=== PATIENT | female | born 1990 | race American Indian/Alaskan Native ===

== ENCOUNTER 2016-07-06 22:19 | Emergency (ER) | payer SELFPAY ==
[2016-07-07 00:13] LABS: Basophils % (Auto) 0.5 % (0.0-1.8); Hematocrit 37.3 % (30.3-42.9); Hemoglobin 12.5 gm/dl (10.1-14.3); Mean Corpuscular HGB Conc 34 % (30-34); Mean Corpuscular Hemoglobin 32 pg (28-32); Mean Corpuscular Volume 96 fl (79-97); Platelet Count 269 K/mm3 (140-440); Red Blood Count 3.88 M/mm3 (3.65-5.03); Red Cell Distribution Width 12.6 % (13.2-15.2)
[2016-07-07 00:19] LABS: Bilirubin,Urine NEG (Negative); Blood,Urine NEG (Negative); Ketones,Urine NEG (Negative); Leukocyte Esterase,Urine NEG (Negative); Mucus,Urine 3+ /HPF; Nitrite,Urine NEG (Negative); Protein,Urine <15 mg/dL mg/dL (Negative); Urobilinogen,Urine < 2.0 mg/dL (<2.0)
[2016-07-07 00:23] LABS: INR 0.99 (0.87-1.13); Partial Thromboplastin Time 26.5 Sec. (24.2-36.6)
[2016-07-07 00:27] LABS: Alanine Aminotransferase 8 units/L (7-56); Albumin 4.1 g/dL (3.9-5); Albumin/Globulin Ratio 1.2 %; Alkaline Phosphatase 51 units/L (35-129); Anion Gap 18 mmol/L; Bilirubin,Total 0.5 mg/dL (0.1-1.2); Blood Urea Nitrogen 11 mg/dL (7-17); Calcium 8.8 mg/dL (8.4-10.2); Carbon Dioxide 21 mmol/L (22-30); Chloride 105.3 mmol/L (98-107); Glucose 73 mg/dL (65-100); Lipase 20 units/L (13-60); Potassium 3.7 mmol/L (3.6-5.0); Sodium 141 mmol/L (137-145); Total Protein 7.6 g/dL (6.3-8.2)
[2016-07-07 08:26] VITALS: BP 137/92
[2016-07-07] MEDS ORDERED: MOTRIN PO ONE (08:53)
--- NOTE | 2016-07-07 08:53 | Emergency Department Report ---
ED Chest Pain HPI - General Chief Complaint: Pain General Stated Complaint: BACK AND CHEST PAIN Time Seen by Provider: 07/07/16 07:57 Source: patient Mode of arrival: Ambulatory Limitations: No Limitations - History of Present Illness Initial Comments: 25-year-old female past medical history none presents with complaint of one week of intermittent right-sided chest pain worse with movement. Denies any fevers chills no associated diaphoresis nausea or vomiting. No upper or lower extremity weakness or paresthesias. Patient states that she has not had any rash no direct trauma to chest. 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 Patient states that pain is worse when she presses area of ribs underneath her right breast and when she rotates her right shoulder internally and externally. Patient states she was taking Tylenol with minimal relief pain. Denies any family history in mother or father of heart attack. Denies any recent surgery no recent travel no personal history of PE or DVT denies being on any control. States that pain makes her slightly short of breath last for a few seconds at a time. Has felt this sensation intermittently when physically exerting herself and using her upper extremities a few times this week. Denies any associated productive cough or hemoptysis. MD Complaint: chest pain Onset/Timin -: week(s) Onset: during exertion Pain Location: right chest Pain Radiation: RUE Severity: moderate Severity scale (0 -10): 6 Quality: aching, sharp Consistency: intermittent Worsens With: movement Treatments Prior to Arrival: none Aspirin use within the Past 7 Days: (1) Yes - Related Data On Oral Contraceptives: No Previous Rx's Medication Instructions Recorded Last Taken Type Famotidine [Pepcid] 20 mg PO BID PRN #30 tablet 07/07/16 Unknown Rx Naproxen [Naprosyn TAB] 500 mg PO BID PRN #25 tablet 07/07/16 Unknown Rx Ondansetron [Zofran Odt] 4 mg PO Q8HR PRN #10 tab.rapdis 07/07/16 Unknown Rx Allergies Allergy/AdvReac Type Severity Reaction Status Date / Time No Known Allergies Allergy Unverified 07/06/16 22:52 JOSE C score - Jose C Score Age > 65: (0) No Aspirin use within the Past 7 Days: (0) No 3 or more CAD Risk Factors: (0) No 2 or more Angina events in past 24 hrs: (0) No Known CAD with more than 50% Stenosis: (0) No Elevated Cardiac Markers: (0) No ST Deviation Greater than 0.5mm: (0) No JOSE C Score: 0 ED Review of Systems ROS: Stated complaint: BACK AND CHEST PAIN Other details as noted in HPI Constitutional: denies: chills, fever Eyes: denies: eye pain, eye discharge, vision change ENT: denies: ear pain, throat pain Respiratory: denies: cough, shortness of breath, wheezing Cardiovascular: chest pain. denies: palpitations Endocrine: no symptoms reported Gastrointestinal: denies: abdominal pain, nausea, diarrhea Genitourinary: denies: urgency, dysuria, discharge Musculoskeletal: denies: back pain, joint swelling, arthralgia Skin: denies: rash, lesions Neurological: denies: headache, weakness, paresthesias Psychiatric: denies: anxiety, depression Hematological/Lymphatic: denies: easy bleeding, easy bruising ED Past Medical Hx - Past Medical History Previous Medical History?: No - Surgical History Past Surgical History?: No - Social History Smoking Status: Never Smoker Substance Use Type: None - Medications Home Medications: Home Medications Medication Instructions Recorded Confirmed Last Taken Type Famotidine [Pepcid] 20 mg PO BID PRN #30 tablet 07/07/16 Unknown Rx Naproxen [Naprosyn TAB] 500 mg PO BID PRN #25 tablet 07/07/16 Unknown Rx Ondansetron [Zofran Odt] 4 mg PO Q8HR PRN #10 tab.rapdis 07/07/16 Unknown Rx ED Physical Exam - General Limitations: No Limitations General appearance: alert, in no apparent distress - Head Head exam: Present: atraumatic, normocephalic - Eye Eye exam: Present: normal appearance, PERRL, EOMI - ENT ENT exam: Present: mucous membranes moist - Neck Neck exam: Present: normal inspection, full ROM - Respiratory Respiratory exam: Present: normal lung sounds bilaterally. Absent: respiratory distress - Cardiovascular Cardiovascular Exam: Present: regular rate, normal rhythm. Absent: systolic murmur, diastolic murmur, rubs, gallop - Expanded Cardiovascular Exam Expanded 1 - Reproducible chest pain in this region on palpation directly overlying intercostal region right side midaxillary line. No visible rash in surface. - GI/Abdominal GI/Abdominal exam: Present: soft, normal bowel sounds - Extremities Exam Extremities exam: Present: normal inspection - Back Exam Back exam: Present: normal inspection, full ROM - Neurological Exam Neurological exam: Present: alert, oriented X3, CN II-XII intact, normal gait - Expanded Neurological Exam Expanded Patient oriented to: Present: person, place, time Sensory exam: Upper Extremity Light Touch: Normal, Lower Extremity Light Touch: Normal Motor strength exam: RUE: 5, LUE: 5, RLE: 5, LLE: 5 DTR: bicep (R): 3+, bicep (L): 3+, tricep (R): 3+, tricep (L): 3+ Best Eye Response (Cosmo): (4) open spontaneously Best Motor Response (Cosmo): (6) obeys commands Best Verbal Response ([place]): (5) oriented [place] Total: 15 - Psychiatric Psychiatric exam: Present: normal affect, normal mood - Skin Skin exam: Present: warm, dry, intact, normal color. Absent: rash ED Course Vital Signs 07/06/16 07/07/16 22:26 08:25 Temperature 98.5 F Pulse Rate 84 72 Respiratory 18 20 Rate Blood Pressure 125/78 137/92 [Right] O2 Sat by Pulse 100 100 Oximetry ED Medical Decision Making - Lab Data Result diagrams: 07/06/16 23:27 07/06/16 23:27 - Medical Decision Making A/P: Musculoskeletal chest pain/ costochondritis 1-chest pain is reproducible on physical exam likely due to stress related to work and overuse of upper extremity/chest related to work, patient works in a [employer], lifts boxes and groceries all day long. 2- Risk Stratification for chest pain: HEART Score: 0 points Low Score (0-3 points) Risk of MACE of 0.9-1.7%; JOSE C Score 0 points 5% risk at 14 days of: all -cause mortality, new or recurrent [place], or severe recurrent ischemia requiring urgent revascularization.; PERC Rule 0 criteria No need for further workup, as < 2% chance of PE. If no criteria are positive and clinicians pre-test probability is <15%, PERC Rule criteria are satisfied.; Well Score for PE; 0.0 points Low risk group: 1.3% chance of PE in an ED population. Another study assigned scores 4 as PE Unlikely and had a 3% incidence of PE. Pt has no hx of dvt/pe, not on BC, no recent srugeries, etc. Nop family hx of [place] in mother or father as per pt. as no personal risk factors for CAD herself. 3-serial EKGs within normal limits 4-case discussed with before discharge, I will give patient f./u with PMD and Cardiology for outpt f/u and testing 5- Naproxen PRn for pain Critical care attestation.: If time is entered above; I have spent that time in minutes in the direct care of this critically ill patient, excluding procedure time. ED Disposition Clinical Impression: Musculoskeletal chest pain Disposition: DISCHARGED TO HOME OR SELFCARE Is pt being admited?: No Does the pt Need Aspirin: No Condition: Stable Instructions: Chest Pain (ED), Costochondritis (ED) Additional Instructions: I advised patient to call for follow-up appointment with cardiology within the next 3-5 days as per our discussion. Patient agreed to do so. Prescriptions: Famotidine [Pepcid] 20 mg PO BID PRN #30 tablet PRN Reason: Indigestion Naproxen [Naprosyn TAB] 500 mg PO BID PRN #25 tablet PRN Reason: Pain Ondansetron [Zofran Odt] 4 mg PO Q8HR PRN #10 tab.rapdis PRN Reason: Nausea Referrals: STEPHANIE GHOSH MD [Staff Physician] - 3-5 Days AVERY LEÓN MD [Staff Physician] - 3-5 Days Forms: Work/School Release Form(ED) Time of Disposition: 09:09
--- NOTE | 2016-07-07 09:12 | XRay Report ---
Chest 2 views: History: Chest pain. Findings: Normal cardiomediastinal silhouette. Trachea is midline. No consolidation, pneumothorax or pleural effusion. Impression: No acute cardiopulmonary findings.
== END 2016-07-07 10:10 | disposition home or self-care (01) ==
LOC: ED 22:19
DX: R07.89 Other chest pain (principal)
CPT/HCPCS: 36415; 71020; 80053; 81001; 83690; 84484; 84703; 85025; 85610; 85730; 93005; 93010

== ENCOUNTER 2017-09-17 09:47 | Inpatient (IN) | payer BC, MEDICAID ==
[2017-09-17] MEDS: PHENERGAN PR SCH (12:30)
--- NOTE | 2017-09-17 12:58 | History and Physical Report ---
History of Present Illness Date of examination: 09/17/17 Date of admission: 09/17/17 10:40 Chief complaint: hyperemesis gravidarum History of present illness: This is a 26 yo at 10 weeks here for hyperemesisi and graviardum. She is not able to tolerate po. She was seen in clinic last week and given antiemetics but unable to continue. Patient reports back pain. She has lost 5 pounds. Past History Past Medical History: no pertinent history Past Surgical History: no surgical history Family/Genetic History: none Social history: no significant social history, single. denies: smoking, alcohol abuse, prescription drug abuse Medications and Allergies Allergies Allergy/AdvReac Type Severity Reaction Status Date / Time No Known Allergies Allergy Unverified 07/06/16 22:52 Home Medications Medication Instructions Recorded Confirmed Last Taken Type Famotidine [Pepcid] 20 mg PO BID PRN #30 tablet 07/07/16 Unknown Rx Naproxen [Naprosyn TAB] 500 mg PO BID PRN #25 tablet 07/07/16 Unknown Rx Ondansetron [Zofran Odt] 4 mg PO Q8HR PRN #10 tab.rapdis 07/07/16 Unknown Rx Active Meds: Active Medications Dextrose/Lactated Ringer's (D5lr) 1,000 mls @ 500 mls/hr IV DIRECT ANIKA Stop: 09/18/17 14:59 Dextrose/Lactated Ringer's (D5lr) 1,000 mls @ 150 mls/hr IV DIRECT ANIKA Metoclopramide HCl (Reglan) 10 mg IV Q6H ANIKA Multivitamins/Iron/Calcium ( Vitamin) 1 each PO QDAY ANIKA Ondansetron HCl (Zofran) 4 mg IV Q6H PRN PRN Reason: N/V unrelieved by Reglan Promethazine HCl (Phenergan) 25 mg MT Q6H ANIKA Scopolamine (Transderm-Scop) 1 each TD Q3D ANIKA Review of Systems All systems: negative Gastrointestinal: abdominal pain, nausea, vomiting - Physical Exam Breasts: Positive: normal Cardiovascular: Regular rate, Normal S1 Lungs: Positive: Clear to auscultation, Normal air movement Abdomen: Positive: normal appearance, soft, normal bowel sounds. Negative: distention, tenderness, guarding Genitourinary (Female): Positive: normal external genitalia, normal perenium Vulva: both: normal Vagina: Positive: normal moisture Anus/Rectum: Positive: normal perianal skin Extremities: Positive: normal Deep Tendon Reflex Grade: Normal +2 Results All other labs normal. Assessment and Plan A/P IUP 10 weeks US for abdominal pain antiemetics IV ( zofran, phenergan, scopolamine, reglan) IVF nutrition consult NPO
[2017-09-17] MEDS: TRANSDERM-SCOP TD SCH (16:01)
[2017-09-17] MEDS: REGLAN IV SCH ×2 (16:02→22:29)
[2017-09-17] MEDS: ZOFRAN IV PRN (16:02)
[2017-09-17] MEDS: D5LR 1,000 ML IV SCH ×3 (16:03→21:03)
[2017-09-17 17:19] LABS: Bilirubin,Urine NEG (Negative); Blood,Urine NEG (Negative); Color,Urine Yellow (Yellow); Mucus,Urine FEW /HPF; Protein,Urine <15 mg/dL mg/dL (Negative); Urobilinogen,Urine < 2.0 mg/dL (<2.0)
--- NOTE | 2017-09-17 18:33 | Ultrasound Report ---
FINAL REPORT PROCEDURE: US OB < = 14 WEEKS FETUS TECHNIQUE: Real-time transabdominal sonography of the uterus, placenta, amniotic fluid, adnexa, and fetus was performed with image documentation. Measurements were obtained to determine age/size. M-mode Doppler was used to document heartbeat. CPT 12358 HISTORY: abdominal pain and hyperemesis COMPARISON: No prior studies are available for comparison. FINDINGS: There is a single living intrauterine gestation visualized with a heart rate of 160 beats per minute. Shape of the gestational sac appears normal. No evidence of subchorionic hemorrhage. [place]-rump length measurement 3.9 centimeter corresponding to an age of 10 weeks and 6 days. Fetus currently too small to assess anatomy. No gross abnormality is visualized. Right and left ovaries are normal in appearance and size. No abnormal adnexal masses are seen. No free fluid is seen in the cul-de-sac.. IMPRESSION: Single living intrauterine gestation visualized. By crown-rump length measurement estimated age is 10 weeks 6 days. This places the EDC at 04/09/2018 +/-1 week. Fetus currently too small to assess anatomy. No gross abnormality is seen. Consider follow-up anatomic screen at 18-20 weeks. Ovaries are visualized and are unremarkable.
[2017-09-17 19:14] LABS: Basophils % (Auto) 0.3 % (0.0-1.8); Eosinophils % (Auto) 0.4 % (0.0-4.3); Hematocrit 34.5 % (30.3-42.9); Hemoglobin 11.9 gm/dl (10.1-14.3); Lymphocytes # (Auto) 1.5 K/mm3 (1.2-5.4); Lymphocytes % (Auto) 22.3 % (13.4-35.0); Mean Corpuscular HGB Conc 35 % (30-34); Mean Corpuscular Hemoglobin 32 pg (28-32); Mean Corpuscular Volume 93 fl (79-97); Monocytes # (Auto) 0.4 K/mm3 (0.0-0.8); Monocytes % (Auto) 6.1 % (0.0-7.3); Platelet Count 291 K/mm3 (140-440); Red Blood Count 3.72 M/mm3 (3.65-5.03); Red Cell Distribution Width 12.3 % (13.2-15.2)
[2017-09-17 19:38] LABS: Lipase 17 units/L (13-60)
[2017-09-17 19:40] LABS: Alanine Aminotransferase 46 units/L (7-56); Albumin 3.6 g/dL (3.9-5); BUN/Creatinine Ratio 10; Blood Urea Nitrogen 4 mg/dL (7-17); Calcium 9.1 mg/dL (8.4-10.2); Hemolysis Index 0
[2017-09-17 19:49] LABS: Hepatitis A Antibody IgM Non-Reactive (NonReactive); Hepatitis B Core IgM Non-Reactive (NonReactive); Hepatitis B Surface Antigen Non-Reactive (Negative); Hepatitis C Virus Antibody Non-Reactive (NonReactive)
[2017-09-18] MEDS: KCL 10MEQ/100ML 10 MEQ/100 ML BAG IV SCH ×2 (00:04→01:29)
[2017-09-18] MEDS: PHENERGAN PR SCH ×3 (01:00→19:00)
[2017-09-18] MEDS: REGLAN IV SCH (04:35)
[2017-09-18] MEDS: D5LR 1,000 ML IV SCH ×3 (04:37→22:54)
--- NOTE | 2017-09-18 08:15 | Progress Note ---
Assessment and Plan A: IUP at 10 wks Hyperemesis P: Advance diet at tolerated. Transition to PO antiemetics Subjective - Subjective Date of service: 09/18/17 Principal diagnosis: Hyperemesis, IUP at 10 wks Interval history: Pt reports improved nausea overnight, and no emesis. She wants to eat food. She has tolerated clear liquids. Patient reports: no new complaints Objective - Vital Signs Vital Signs: Vital Signs - 12hr 09/18/17 09/18/17 00:00 04:25 Temperature 98.2 F 98.6 F Pulse Rate 72 67 Respiratory 20 20 Rate Blood Pressure 137/75 98/52 [Left] - Exam Breasts: deferred Cardiovascular: Regular rate Lungs: Clear to auscultation Abdomen: Present: soft Extremities: normal - Labs Labs: Abnormal Labs 09/17/17 09/17/17 09/17/17 16:45 19:02 19:02 MCHC 35 H RDW 12.3 L Seg Neutrophils % 70.9 H Sodium 135 L Potassium 3.4 L BUN 4 L Creatinine 0.4 L Glucose 141 H Albumin 3.6 L Urine pH 8.0 H Laboratory Results - last 24 hr 09/17/17 09/17/17 09/17/17 16:45 16:45 19:02 WBC 6.7 RBC 3.72 Hgb 11.9 Hct 34.5 MCV 93 MCH 32 MCHC 35 H RDW 12.3 L Plt Count 291 Lymph % (Auto) 22.3 [place] % (Auto) 6.1 Eos % (Auto) 0.4 Baso % (Auto) 0.3 Lymph # 1.5 [place] # 0.4 Eos # 0.0 Baso # 0.0 Seg Neutrophils % 70.9 H Seg Neutrophils # 4.7 Sodium Potassium Chloride Carbon Dioxide Anion Gap BUN Creatinine Estimated GFR BUN/Creatinine Ratio Glucose Calcium Total Bilirubin AST ALT Alkaline Phosphatase Total Protein Albumin Albumin/Globulin Ratio Amylase Lipase TSH Urine Color Yellow Urine Turbidity Clear Urine pH 8.0 H Ur Specific [place] 1.012 Urine Protein <15 mg/dl Urine Glucose (UA) Neg Urine Ketones Neg Neg Urine Blood Neg Urine Nitrite Neg Urine Bilirubin Neg Urine Urobilinogen < 2.0 Ur Leukocyte Esterase Neg Urine WBC (Auto) 2.0 Urine RBC (Auto) 1.0 U Epithel Cells (Auto) 1.0 Urine Mucus Few Hepatitis A IgM Ab Hep Bs Antigen Hep B Core IgM Ab Hepatitis C Antibody 09/17/17 09/17/17 09/17/17 19:02 19:02 19:02 WBC RBC Hgb Hct MCV MCH MCHC RDW Plt Count Lymph % (Auto) [place] % (Auto) Eos % (Auto) Baso % (Auto) Lymph # [place] # Eos # Baso # Seg Neutrophils % Seg Neutrophils # Sodium Potassium Chloride Carbon Dioxide Anion Gap BUN Creatinine Estimated GFR BUN/Creatinine Ratio Glucose Calcium Total Bilirubin AST ALT Alkaline Phosphatase Total Protein Albumin Albumin/Globulin Ratio Amylase 126 Lipase 17 TSH 1.440 Urine Color Urine Turbidity Urine pH Ur Specific [place] Urine Protein Urine Glucose (UA) Urine Ketones Urine Blood Urine Nitrite Urine Bilirubin Urine Urobilinogen Ur Leukocyte Esterase Urine WBC (Auto) Urine RBC (Auto) U Epithel Cells (Auto) Urine Mucus Hepatitis A IgM Ab Non-reactive Hep Bs Antigen Non-reactive Hep B Core IgM Ab Non-reactive Hepatitis C Antibody Non-reactive 09/17/17 09/18/17 19:02 07:04 WBC RBC Hgb Hct MCV MCH MCHC RDW Plt Count Lymph % (Auto) [place] % (Auto) Eos % (Auto) Baso % (Auto) Lymph # [place] # Eos # Baso # Seg Neutrophils % Seg Neutrophils # Sodium 135 L Potassium 3.4 L 3.9 Chloride 99.2 Carbon Dioxide 25 Anion Gap 14 BUN 4 L Creatinine 0.4 L Estimated GFR > 60 BUN/Creatinine Ratio 10 Glucose 141 H Calcium 9.1 Total Bilirubin 0.40 AST 30 ALT 46 Alkaline Phosphatase 44 Total Protein 6.9 Albumin 3.6 L Albumin/Globulin Ratio 1.1 Amylase Lipase TSH Urine Color Urine Turbidity Urine pH Ur Specific [place] Urine Protein Urine Glucose (UA) Urine Ketones Urine Blood Urine Nitrite Urine Bilirubin Urine Urobilinogen Ur Leukocyte Esterase Urine WBC (Auto) Urine RBC (Auto) U Epithel Cells (Auto) Urine Mucus Hepatitis A IgM Ab Hep Bs Antigen Hep B Core IgM Ab Hepatitis C Antibody
[2017-09-18 10:21] LABS: BUN/Creatinine Ratio 5; Blood Urea Nitrogen 2 mg/dL (7-17); Hemolysis Index 3
[2017-09-18] MEDS: REGLAN PO PRN ×3 (10:21→22:52)
[2017-09-18] MEDS: PRENATAL VITAMIN PO SCH (10:22)
[2017-09-19] MEDS: ZOFRAN IV PRN (02:30)
[2017-09-19] MEDS: PHENERGAN PR SCH ×4 (06:44→19:00)
--- NOTE | 2017-09-19 08:58 | Progress Note ---
Assessment and Plan A: 10 week hyperemesis, improved P: Progress diet Po antiemetics Subjective - Subjective Date of service: 09/19/17 Principal diagnosis: Hyperemesis, IUP at 10 wks Patient reports: other (tolerating Clears without N/V), no new complaints Objective - Vital Signs Vital Signs: Vital Signs - 12hr 09/18/17 09/19/17 09/19/17 22:00 00:00 04:00 Temperature 98.7 F 98.0 F Pulse Rate 79 65 Respiratory 20 20 Rate Respiratory 18 Rate [Abdomen] Blood Pressure 94/53 91/50 [Left] - Exam Breasts: deferred Abdomen: Present: normal appearance, soft Uterus: Present: normal, bogginess - Labs Labs: Abnormal Labs 09/17/17 09/17/17 09/17/17 16:45 19:02 19:02 MCHC 35 H RDW 12.3 L Seg Neutrophils % 70.9 H Sodium 135 L Potassium 3.4 L BUN 4 L Creatinine 0.4 L Glucose 141 H Albumin 3.6 L Urine pH 8.0 H 09/18/17 09:34 MCHC RDW Seg Neutrophils % Sodium 134 L Potassium BUN 2 L Creatinine 0.4 L Glucose Albumin Urine pH Laboratory Results - last 24 hr 09/18/17 09:34 Sodium 134 L Potassium 3.7 Chloride 99.0 Carbon Dioxide 23 Anion Gap 16 BUN 2 L Creatinine 0.4 L Estimated GFR > 60 BUN/Creatinine Ratio 5 Glucose 91 Calcium 9.0
[2017-09-19] MEDS: PRENATAL VITAMIN PO SCH (09:24)
[2017-09-19] MEDS: ZOFRAN ODT PO PRN (19:26)
[2017-09-20] MEDS: REGLAN PO PRN (02:27)
[2017-09-20] MEDS: ZOFRAN ODT PO PRN (08:01)
[2017-09-20] MEDS: PHENERGAN PR SCH (08:10)
--- NOTE | 2017-09-20 08:22 | Progress Note ---
Assessment and Plan A: IUP at 10 wks Hyperemesis tolerating soft diet on PO medication P: Discharge today on PO medication with follow up with Dr Spears next week. Subjective - Subjective Date of service: 09/20/17 Principal diagnosis: Hyperemesis, IUP at 10 wks Interval history: Pt doing well. Tolerated soft diet overnight. She is asking to go home today. Patient reports: other (tolerating soft diet without emesis ), no new complaints Objective - Vital Signs Vital Signs: Vital Signs - 12hr 09/19/17 09/20/17 21:26 00:56 Temperature 98.7 F 98.6 F Pulse Rate 69 70 Respiratory 20 20 Rate Blood Pressure 99/59 102/65 O2 Sat by Pulse 98 98 Oximetry - Exam Breasts: deferred Cardiovascular: Regular rate Lungs: Clear to auscultation Abdomen: Present: soft. Absent: tenderness Extremities: normal - Labs Labs: Abnormal Labs 09/17/17 09/17/17 09/17/17 16:45 19:02 19:02 MCHC 35 H RDW 12.3 L Seg Neutrophils % 70.9 H Sodium 135 L Potassium 3.4 L BUN 4 L Creatinine 0.4 L Glucose 141 H Albumin 3.6 L Urine pH 8.0 H 09/18/17 09:34 MCHC RDW Seg Neutrophils % Sodium 134 L Potassium BUN 2 L Creatinine 0.4 L Glucose Albumin Urine pH
--- NOTE | 2017-09-20 08:23 | Discharge Summary ---
Providers - Providers Date of Admission: 09/17/17 10:40 Date of discharge: 09/20/17 Attending physician: CORINNE SPEARS MD 09/17/17 12:47 Consult to Dietitian/Nutrition [CONS] Routine Physician Instructions: Reason For Exam: Hyperemesisi gravidarum Reason for Consult: hyper grav Reason for Consult: Poor oral intake Primary care physician: CORINNE SPEARS MD Hospitalization Reason for admission: other (hyperemesis) Hospital course: Patient was admitted for observation and IV antiemetics secondary to hyperemesis at 10 weeks. During hospitalization she was weaned to oral antibiotics and was able to tolerate a soft diet without emesis. She was discharged on hospital day number 3 and will follow up in the office next week with Dr. Spears. Condition at discharge: Stable Disposition: [id number] TO HOME OR SELFCARE - Discharge Diagnoses (1) Hyperemesis affecting , antepartum Status: Acute (2) Status: Acute Qualifiers: Weeks of gestation: 10 weeks Qualified Code(s): Z3A.10 - 10 weeks gestation of Plan - Discharge Medications Prescriptions: Ondansetron [Zofran Odt] 4 mg PO Q8H PRN #30 tab.rapdis PRN Reason: Nausea - Provider Discharge Summary Activity: routine Diet: routine Instructions: routine Additional instructions: [] Smoking cessation referral if applicable(refer to patient education folder for contact #) [] Refer to [facility]'s [facility] Booklet Call your doctor immediately for: * Fever > 100.5 * Heavy vaginal bleeding ( >1 pad per hour) * Severe persistent headache * Shortness of breath * Reddened, hot, painful area to leg or breast * Drainage or odor from incision. * Keep incision clean and dry at all times and follow doctor's instructions regarding bathing/showering - Follow up plan Follow up: CORINNE SPEARS MD [Primary Care Provider] - 7 Days
[2017-09-20] MEDS: PRENATAL VITAMIN PO SCH (09:53)
[2017-09-20] MEDS: TRANSDERM-SCOP TD SCH (11:28)
[2017-09-20 13:14] VITALS: BP 98/79
[2017-09-20] MEDS ORDERED: TRANSDERM-SCOP TD SCH (16:00)
== END 2017-09-20 14:30 | disposition home or self-care (01) | DRG 781 ==
LOC: OB 10:40
PROVIDERS: ADMIT Obstetrics & Gynecology; ATTEND Obstetrics & Gynecology
DX: O21.0 Mild hyperemesis gravidarum (principal); Z3A.10 10 weeks gestation of pregnancy
CPT/HCPCS: 36415; 76801; 80048; 80053; 80074; 81001; 82010; 82150; 83690; 84132; 84443; 85025; J2405; J2765; J3480; J7121; Q0162

== ENCOUNTER 2018-01-09 01:12 | Outpatient (CLI) | payer BC, MEDICAID ==
[2018-01-09 01:33] VITALS: BP 119/72
[2018-01-09] MEDS ORDERED: LACTATED RINGERS 500 ML IV ONE (01:50)
[2018-01-09] MEDS ORDERED: LACTATED RINGERS 1,000 ML IV ONE (01:51)
[2018-01-09 03:03] LABS: Bacteria,Urine 1+ /HPF (Negative); Bilirubin,Urine NEG (Negative); Blood,Urine NEG (Negative); Color,Urine Straw (Yellow); Mucus,Urine FEW /HPF; Protein,Urine <15 mg/dL mg/dL (Negative); Urobilinogen,Urine < 2.0 mg/dL (<2.0)
== END 2018-01-09 03:30 | disposition home or self-care (01) ==
LOC: TRG 01:12
PROVIDERS: ATTEND Obstetrics & Gynecology
DX: O26.892 Other specified pregnancy related conditions, second trimester (principal); R10.10 Upper abdominal pain, unspecified; M54.9 Dorsalgia, unspecified; Z3A.26 26 weeks gestation of pregnancy
CPT/HCPCS: 81001

== ENCOUNTER 2018-04-05 07:50 | Outpatient (CLI) | payer BC, MEDICAID ==
[2018-04-05 08:02] VITALS: BP 122/70
[2018-04-05] MEDS ORDERED: LACTATED RINGERS 1,000 ML IV ONE (08:26)
[2018-04-05] MEDS ORDERED: LACTATED RINGERS 1,000 ML ONE (08:27)
[2018-04-05] MEDS ORDERED: MORPHINE IV ONE (09:12)
[2018-04-05] MEDS ORDERED: PHENERGAN PO ONE (09:13)
== END 2018-04-05 12:20 | disposition home or self-care (01) ==
LOC: TRG 07:50
PROVIDERS: ATTEND Obstetrics & Gynecology
DX: O47.1 False labor at or after 37 completed weeks of gestation (principal); Z3A.39 39 weeks gestation of pregnancy
CPT/HCPCS: 59025; 96360; J2270; J7120; Q0169

== ENCOUNTER 2018-04-05 14:30 | Inpatient (IN) | payer BC, MEDICAID ==
[2018-04-05] MEDS ORDERED: PHENERGAN PO PRN (14:51)
[2018-04-05] MEDS ORDERED: MORPHINE IV ONE (15:04)
[2018-04-05] MEDS: LACTATED RINGERS 1,000 ML IV SCH ×2 (15:10→18:10)
[2018-04-05] MEDS ORDERED: MORPHINE ONE (15:13)
[2018-04-05 15:28] LABS: Hematocrit 37.5 % (30.3-42.9); Hemoglobin 12.7 gm/dl (10.1-14.3); Mean Corpuscular HGB Conc 34 % (30-34); Mean Corpuscular Volume 95 fl (79-97); Platelet Count 240 K/mm3 (140-440); Red Blood Count 3.94 M/mm3 (3.65-5.03); Red Cell Distribution Width 13.8 % (13.2-15.2)
[2018-04-05] MEDS ORDERED: NARCAN 2 MG/2 ML IV PRN (18:55)
[2018-04-05] MEDS ORDERED: BENADRYL IV PRN (18:55)
--- NOTE | 2018-04-05 18:57 | Anesthesia Day of Surgery ---
Anesthesia Day of Surgery - Day of Surgery Patient Examined: Yes Patient H&P Reviewed: Yes Patient is NPO: Yes Beta Blockers: No Cardiac Clearance: No Pulmonary Clearance: No Smhuel's Test: N/A
--- NOTE | 2018-04-05 18:57 | Anesthesia Consultation ---
Anesthesia Consult and Med Hx Date of service: 04/05/18 - Airway Anesthetic Teeth Evaluation: Good ROM Head & Neck: Adequate Mental/Hyoid Distance: Adequate Mallampati Class: Class II Intubation Access Assessment: Probably Good - Pulmonary Exam CTA: Yes - Cardiac Exam Cardiac Exam: No Murmur - Pre-Operative Health Status ASA Pre-Surgery Classification: ASA2 Proposed Anesthetic Plan: Epidural - Pulmonary Hx Asthma: No COPD: No Hx Pneumonia: No - Cardiovascular System Hx Hypertension: No - Central Nervous System Hx Seizures: No Hx Psychiatric Problems: No - Endocrine Hx Renal Disease: No Hx End Stage Renal Disease: No Hx Hypothyroidism: No Hx Hyperthyroidism: No - Hematic Hx Anemia: Yes Hx Sickle Cell Disease: No - Other Systems Hx Alcohol Use: No
[2018-04-05] MEDS ORDERED: fentaNYL-BUPIV 2 MCG/ML-0.125% 200 MCG/100 ML BAG EPIDURAL SCH (19:00)
[2018-04-05] MEDS ORDERED: PITOCin/NS 20 UNIT/1000ML DRIP 20 UNITS/1,000 ML BAG IV SCH ×2 (19:00→20:00)
[2018-04-05] MEDS ORDERED: STADOL IV PRN (19:28)
[2018-04-05] MEDS ORDERED: BRETHINE IVP PRN (19:28)
[2018-04-05] MEDS ORDERED: XYLOCAINE 2% INFILTRATI ONE (19:28)
[2018-04-05] MEDS ORDERED: BRETHINE SUB-Q PRN (19:28)
[2018-04-05] MEDS ORDERED: AMPICILLIN/NS 2 GM/100 ML 2 GM/100 ML BAG IV ONE ×2 (19:28→19:39)
[2018-04-05] MEDS ORDERED: MINERAL OIL PO PRN (19:28)
[2018-04-05] MEDS ORDERED: PITOCin/NS 30 UNIT/500ML 30 UNITS/500 ML BAG IV SCH (20:00)
[2018-04-05] MEDS ORDERED: LACTATED RINGERS 1,000 ML IV SCH (20:00)
[2018-04-05] MEDS ORDERED: AMPICILLIN/NS 1 GM/50 ML 1 GM/50 ML BAG IV SCH (23:29)
--- NOTE | 2018-04-06 02:02 | History and Physical Report ---
History of Present Illness Date of examination: 04/06/18 Date of admission: 04/05/18 17:30 Chief complaint: contractions History of present illness: 27y/o @ 38+6 weeks presents with regular uterine contractions. She denies leakage of fluid. Patient had been latent labor for the last 24 hours and eventually had cervical change to 5cm. GBS status is currently unknown. Past History Past Medical History: no pertinent history Past Surgical History: no surgical history Social history: single - Obstetrical History Expected Date of Delivery: 04/14/18 Actual Gestation: 38 Week(s) 6 Day(s) : 3 Para: 2 Hx # Term Pregnancies: 2 Number of Pregnancies: 0 Spontaneous Abortions: 0 Induced : 0 Number of Living Children: 2 Medications and Allergies Allergies Allergy/AdvReac Type Severity Reaction Status Date / Time No Known Allergies Allergy Verified 01/09/18 01:50 Home Medications Medication Instructions Recorded Confirmed Last Taken Type Vits96/Iron Fum/Folic 1 tab PO QDAY 04/05/18 04/05/18 04/03/18 History [ Tablet] Active Meds: Active Medications Butorphanol Tartrate (Stadol) 2 mg IV Q2H PRN PRN Reason: Pain , Severe (7-10) Diphenhydramine HCl (Benadryl) 12.5 mg IV Q2H PRN PRN Reason: Itching Ephedrine Sulfate (Ephedrine Sulfate) 10 mg IV Q2M PRN PRN Reason: Hypotension Last Admin: 04/05/18 19:44 Dose: 10 mg Documented by: Ephedrine Sulfate (Ephedrine Sulfate) 10 mg IV Q2M PRN PRN Reason: Hypotension Lactated Ringer's (Lactated Ringers) 1,000 mls @ 125 mls/hr IV DIRECT ANIKA Last Admin: 04/05/18 18:10 Dose: 125 mls/hr Documented by: Oxytocin/Sodium Chloride (Pitocin/Ns 20 Unit/1000ml Drip) 20 units in 1,000 mls @ 0 mls/hr IV DIRECT ANIKA Fentanyl/Bupivacaine/Sodium Chlor (Fentanyl-Bupiv 2 Mcg/Ml-0.125%) 200 mcg in 100 mls @ 12 mls/hr EPIDURAL TITR ANIKA; Protocol Last Admin: 04/05/18 21:06 Dose: 12 mls/hr Documented by: Ampicillin Sodium (Ampicillin/Ns 1 Gm/50 Ml) 1 gm in 50 mls @ 100 mls/hr IV Q4HR ANIKA; Protocol Lactated Ringer's (Lactated Ringers) 1,000 mls @ 125 mls/hr IV DIRECT ANIKA Oxytocin/Sodium Chloride (Pitocin/Ns 20 Unit/1000ml Drip) 20 units in 1,000 mls @ 125 mls/hr IV DIRECT ANIKA Oxytocin/Sodium Chloride (Pitocin/Ns 30 Unit/500ml) 30 units in 500 mls @ 1 mls/hr IV TITR ANIKA; Protocol Mineral Oil (Mineral Oil) 30 ml PO QHS PRN PRN Reason: Constipation Naloxone HCl (Narcan 2 Mg/2 Ml) 0.2 mg IV Q5M PRN PRN Reason: Respiratory sedation Promethazine HCl (Phenergan) 25 mg PO Q6H PRN PRN Reason: Nausea And Vomiting Last Admin: 04/05/18 15:19 Dose: 25 mg Documented by: Terbutaline Sulfate (Brethine) 0.25 mg SUB-Q ONCE PRN PRN Reason: Hyperstimulation/Hypertonicity Terbutaline Sulfate (Brethine) 0.25 mg IVP ONCE PRN PRN Reason: Hyperstimulation/Hypertonicity Review of Systems All systems: negative Genitourinary: contractions - Vital Signs Vital signs: Vital Signs Resp 22 04/05/18 15:19 Temp Pulse Resp BP Pulse Ox 98.0 F 85 18 102/55 100 04/05/18 18:02 04/06/18 01:56 04/05/18 18:02 04/06/18 01:47 04/06/18 01:56 - Physical Exam Breasts: Positive: deferred Cardiovascular: Regular rate Lungs: Positive: Clear to auscultation Abdomen: Positive: normal appearance Results Result Diagrams: 04/05/18 15:08 All other labs normal. Assessment and Plan - Patient Problems (1) Active labor at term Current Visit: Yes Status: Acute Plan to address problem: admit to L&D
--- NOTE | 2018-04-06 02:10 | Event Note ---
Date: 04/06/18 tracing with moderate variable decelerations with contractions. Amniotomy performed with clear fluid. FSE placed. Will continue to monitor closely.
[2018-04-06] MEDS ORDERED: BICITRA PO ONE (02:53)
[2018-04-06] MEDS ORDERED: ANCEF/STERILE WATER 2 GM/20 ML 2 GM/20 ML SYRINGE IV ONE (02:53)
[2018-04-06] MEDS ORDERED: PEPCID IV ONE ×2 (02:53)
[2018-04-06] MEDS ORDERED: REGLAN IV ONE (02:53)
[2018-04-06] MEDS ORDERED: REGLAN ONE (02:53)
[2018-04-06] MEDS ORDERED: ANCEF/STERILE WATER 2 GM/20 ML 2 GM/20 ML SYRINGE IV NR (02:53)
[2018-04-06] MEDS ORDERED: BICITRA ONE (02:53)
--- NOTE | 2018-04-06 02:55 | Event Note ---
Date: 04/06/18 Patient is 8cm however having prolonged bradycardia with slow return to baseline. Patient counseled for a primary delivery for non-reassuring tracing.
--- NOTE | 2018-04-06 02:56 | Operative Report ---
Operative Report Operative Report: Date of surgery: 04/06/2018 Preoperative diagnosis: at 38+6 weeks; nonreassuring heart rate tracing Postoperative diagnosis: Same as above Procedure:. Primary Low transverse delivery Surgeon: Rita Mcclain M.D. Anesthesia: Regional Estimated blood loss: 550 mL IV fluids: 850 mL Findings: Liveborn male with Apgars of 8 and 9 weight 7 lbs. 0 oz. Indications: 27-year-old 002 at 38+6 weeks who presents in active labor. Her intrapartum course was complicated by a nonreassuring heart rate tracing with bradycardia with slow return to baseline. The patient was counseled for primary delivery Procedure: The patient was taken to the operating room and given regional anesthesia without complication. She was prepped and draped in a normal sterile fashion. A Pfannenstiel skin incision was made down to layer the fascia which was nicked in the midline extended laterally with the Bovie cautery. The superior aspect of the rectus fascia was grasped with Loida clamps x2 and the rectus muscles off sharply. This was done in inferior fashion as well. The rectus muscle midline and peritoneum entered bluntly. An Woody retractor was then inserted. A bladder blade was placed. The vesicouterine peritoneum was then entered sharply with Metzenbaum scissors. A bladder flap was created digitally. A low transverse uterine incision was then made and extended digitally. There was clear fluid upon entry into the uterine cavity. The head was delivered through the incision with fundal pressure. A nuchal cord 1 was manually reduced. The cord was clamped and cut x2 and infant was passed off to pediatrics. The placenta was then manually extracted. The uterus was then exteriorized and cleared of clots and debris. The uterine incision was then closed in a running locked fashion with 0 Vicryl additional imbricating stitch was applied for 2 layer closure. The serosa was then reapproximated with 3-0 Vicryl. The posterior cul-de-sac was then copiously irrigated. The uterus was replaced back into the abdomen and pelvis were the gutters were then irrigated. The Woody retractor was then removed. The peritoneum was then reapproximated with 3-0 Vicryl incorporating the rectus muscle. The fascia was then closed with 0 Vicryl in a running fashion. The skin was then reapproximated with 3-0 Monocryl on a Jude needle subcuticular fashion. Steri-Strips to place across the incision and a Crede procedures performed at the end of the surgery. A pressure dressing was applied to the incision. The surgery productive of a liveborn male infant with Apgars of 8 and 9 weight 7 lbs. 0 oz. The patient was taken to the recovery room in stable condition. All sponge laps and needle counts correct x2.
--- NOTE | 2018-04-06 02:56 | Procedure Note ---
OB Delivery Note - Delivery Date of Delivery: 04/06/18 Surgeon: NGUYỄN AGUILAR Estimated blood loss: other (550ml) - Section Preop diagnosis: nonreassuring FHR tracing Postop diagnosis: same section procedure: section, primary low transverse Disposition: PACU Complications: none - A at 1 minute: 8 at 5 minutes: 9 Infant Gender: Male (weight 7 lbs. 0 oz.)
[2018-04-06] MEDS ORDERED: XYLOCAINE 2%/ EPI 1:200,000 INFILTRATI ONE (02:59)
[2018-04-06] MEDS ORDERED: WATER FOR IRRIG STERILE IR ONE (03:09)
[2018-04-06] MEDS ORDERED: NACL 0.9% IR ONE (03:09)
[2018-04-06] MEDS ORDERED: ASTRAMORPH PF 10MG/10ML ONE (03:21)
[2018-04-06] MEDS ORDERED: ZOFRAN ONE (03:27)
[2018-04-06] MEDS ORDERED: MILK OF MAGNESIA PO PRN (03:47)
[2018-04-06] MEDS ORDERED: NARCAN 0.4 MG/1 ML IV PRN ×2 (03:47→03:57)
[2018-04-06] MEDS ORDERED: MYLICON PO PRN (03:47)
[2018-04-06] MEDS ORDERED: ZOFRAN IV PRN ×2 (03:47→03:57)
[2018-04-06] MEDS ORDERED: TUCKS PAD TP PRN (03:47)
[2018-04-06] MEDS ORDERED: TORADOL IV PRN (03:47)
[2018-04-06] MEDS ORDERED: TYLENOL PO PRN (03:47)
[2018-04-06] MEDS ORDERED: LANSINOH TP PRN (03:47)
[2018-04-06] MEDS ORDERED: PHENERGAN PR PRN (03:57)
[2018-04-06] MEDS ORDERED: PHENERGAN PO PRN (03:57)
[2018-04-06] MEDS ORDERED: DILAUDID IV PRN (03:57)
--- NOTE | 2018-04-06 03:59 | Post Anesthesia Evaluation ---
- Post Anesthesia Evaluation Patient Participated: Yes Airway Patent: Yes Stable Respiratory Function: Yes Nausea/Vomiting: No Temp > 96.8F: Yes Pain Manageable: Yes Adequeate Hydration: Yes Anesthesia Complications: No Block Receding Appropriately: Yes Patient on Ventilator: No
[2018-04-06] MEDS ORDERED: SODIUM CHLORIDE FLUSH SYRINGE 10 ML IV NR ×2 (04:00)
[2018-04-06] MEDS ORDERED: PITOCin/NS 20 UNIT/1000ML DRIP 20 UNITS/1,000 ML BAG IV SCH (04:00)
[2018-04-06] MEDS ORDERED: NACL 0.9% 1000 ML 1,000 ML ONE (04:57)
[2018-04-06] MEDS ORDERED: NACL 0.9% IV SCH (05:30)
[2018-04-06] MEDS ORDERED: NACL 0.9% 1000 ML 1,000 ML IV SCH (06:00)
[2018-04-06] MEDS: IBUPROFEN PO PRN ×3 (10:18→23:31)
[2018-04-06] MEDS: PERCOCET 5/325 PO PRN ×3 (10:19→23:32)
[2018-04-06] MEDS: D5LR 1,000 ML IV SCH ×2 (11:01→17:38)
[2018-04-06] MEDS: BENADRYL IV PRN ×2 (12:54→17:42)
--- NOTE | 2018-04-06 15:43 | Progress Note ---
Assessment and Plan - Patient Problems (1) Active labor at term Current Visit: Yes Status: Acute Plan to address problem: routine postop care Subjective - Subjective Date of service: 04/06/18 Interval history: Patient is experiencing uterine cramping. Tolerating clear diet. Denies any nausea or vomiting. Oliva remains in place. Patient reports: appetite normal, pain well controlled [place]: doing well Objective - Vital Signs Latest vital signs: Vital Signs Temp Pulse Resp BP BP BP Pulse Ox 04/06/18 12:59 98.5 F 98 H 18 125/78 100 04/06/18 08:38 99.2 F 91 H 18 107/60 98 04/06/18 05:50 99.0 F 78 18 129/67 99 04/06/18 05:29 98.7 F 80 18 130/98 99 04/06/18 04:57 90 14 117/61 100 04/06/18 04:42 98 H 12 91/58 100 04/06/18 04:27 93 H 15 118/59 100 04/06/18 04:12 93 H 17 115/79 99 04/06/18 04:07 93 H 16 122/57 100 04/06/18 04:02 96 H 18 118/73 99 04/06/18 03:57 98.9 F 91 H 24 129/62 99 04/06/18 02:48 100 H 117/63 84 04/06/18 02:46 81 100 04/06/18 02:42 97.5 F L 20 04/06/18 02:41 97 H 100 04/06/18 02:36 85 97 04/06/18 02:32 95 H 115/67 04/06/18 02:31 95 H 98 04/06/18 02:26 105 H 99 04/06/18 02:21 107 H 99 04/06/18 02:17 106 H 113/71 04/06/18 02:16 105 H 98 04/06/18 02:11 106 H 99 04/06/18 02:06 80 100 04/06/18 02:02 81 99/52 04/06/18 02:01 86 100 04/06/18 01:56 85 100 04/06/18 01:51 81 100 04/06/18 01:47 100 H 102/55 04/06/18 01:46 92 H 99 04/06/18 01:41 95 H 100 04/06/18 01:36 77 100 04/06/18 01:32 97 H 98/54 04/06/18 01:31 95 H 100 04/06/18 01:26 89 105/53 100 04/06/18 01:21 90 100 04/06/18 01:17 113 H 88/54 04/06/18 01:16 111 H 100 04/06/18 01:11 89 100 04/06/18 01:06 110 H 99 04/06/18 01:02 104 H 95/51 04/06/18 01:01 104 H 99 04/06/18 00:56 86 99 04/06/18 00:51 106 H 100 04/06/18 00:47 117 H 111/61 04/06/18 00:46 118 H 100 04/06/18 00:41 122 H 100 04/06/18 00:36 95 H 100 04/06/18 00:32 100 H 133/73 04/06/18 00:31 97 H 100 04/06/18 00:26 118 H 100 04/06/18 00:21 95 H 100 04/06/18 00:17 110 H 118/66 04/06/18 00:16 95 H 99 04/06/18 00:11 113 H 99 04/06/18 00:06 111 H 100 04/06/18 00:02 121 H 116/53 04/06/18 00:01 115 H 100 04/05/18 23:56 116 H 99 04/05/18 23:51 108 H 99 04/05/18 23:49 109 H 118/56 04/05/18 23:46 121 H 98 04/05/18 23:41 110 H 100 04/05/18 23:36 90 99 04/05/18 23:32 102 H 110/59 04/05/18 23:31 109 H 100 04/05/18 23:26 106 H 99 04/05/18 23:21 110 H 98 04/05/18 23:18 108 H 107/54 04/05/18 23:16 97 H 98 04/05/18 23:11 93 H 98 04/05/18 23:06 100 H 97 04/05/18 23:02 116 H 112/58 04/05/18 23:01 122 H 98 12/29/18 22:56 123 H 97 18 22:51 104 H 97 18 22:47 110 H 111/56 18 22:46 107 H 97 18 22:41 93 H 97 18 22:36 108 H 98 18 22:32 113 H 118/59 18 22:31 117 H 99 18 22:26 97 H 98 18 22:21 112 H 99 18 22:17 107 H 121/60 18 22:16 106 H 98 18 22:11 94 H 97 18 22:06 96 H 97 18 22:02 109 H 121/57 18 22:01 108 H 97 18 21:56 111 H 97 04/05/18 21:51 97 H 99 04/05/18 21:47 101 H 123/57 18 21:46 105 H 99 18 21:41 117 H 99 18 21:36 110 H 99 18 21:32 111 H 137/84 18 21:31 114 H 100 18 21:26 108 H 99 18 21:21 112 H 100 18 21:17 109 H 143/85 04/05/18 21:16 115 H 100 18 21:11 112 H 99 18 21:06 112 H 100 18 21:04 112 H 138/83 04/05/18 21:01 111 H 100 18 20:56 110 H 100 18 20:51 100 H 99 18 20:48 101 H 120/72 18 20:46 101 H 99 18 20:41 104 H 98 18 20:36 104 H 98 18 20:32 104 H 135/74 18 20:31 107 H 98 18 20:26 107 H 98 18 20:21 103 H 99 18 20:17 106 H 127/74 18 20:16 104 H 99 12/29/18 20:11 99 H 99 04/05/18 20:06 113 H 100 04/05/18 20:02 108 H 118/70 04/05/18 20:01 109 H 98 04/05/18 19:56 107 H 99 04/05/18 19:51 107 H 100 04/05/18 19:46 97 H 115/58 100 18 19:44 95 H 104/58 04/05/18 19:42 107 H 95/50 04/05/18 19:41 99 H 100 04/05/18 19:40 104 H 95/60 04/05/18 19:38 101 H 103/57 04/05/18 19:36 111 H 102/54 100 04/05/18 19:34 95 H 105/57 04/05/18 19:32 72 108/53 04/05/18 19:31 71 100 04/05/18 19:30 77 86/47 04/05/18 19:28 77 84/39 04/05/18 19:26 71 72/38 100 04/05/18 19:24 70 78/43 04/05/18 19:22 97 H 93/50 04/05/18 19:21 98 H 99 04/05/18 19:20 104 H 88/49 04/05/18 19:18 108 H 100/55 04/05/18 19:16 112 H 102/50 04/05/18 19:14 137 H 135/68 04/05/18 19:12 139 H 100 04/05/18 19:08 82 112/59 04/05/18 19:07 90 99 04/05/18 19:05 90 116/55 18 19:03 103 H 98/44 04/05/18 19:02 103 H 99 04/05/18 19:00 87 116/60 18 18:58 107 H 119/61 18 18:57 110 H 100 18 18:56 102 H 127/67 18 18:54 99 H 132/72 18 18:52 98 H 131/72 18 18:50 108 H 138/71 18 18:48 104 H 141/70 97 04/05/18 18:46 108 H 154/72 04/05/18 18:44 109 H 146/68 04/05/18 18:43 101 H 98 04/05/18 18:42 120 H 144/64 04/05/18 18:38 120 H 142/82 98 04/05/18 18:16 122 H 121/80 04/05/18 18:02 98.0 F 18 04/05/18 15:58 96 H 123/62 04/05/18 15:49 20 Intake and Output 04/06/18 04/06/18 04/06/18 06:59 14:59 22:59 Intake Total 200 Output Total 200 900 Balance 0 -900 Intake: IV 200 Output: Urine 200 900 Indwelling Catheter 900 Other: Total, Output Amount 900 Estimated Blood Loss 550 - Exam Abdomen: Present: normal appearance, soft Incision: Present: dressed
[2018-04-06 15:52] LABS: Hematocrit 27.4 % (30.3-42.9); Hemoglobin 9.2 gm/dl (10.1-14.3)
[2018-04-06] MEDS ORDERED: BENADRYL PO PRN (23:39)
[2018-04-07] MEDS: IBUPROFEN PO PRN ×3 (05:54→22:52)
[2018-04-07] MEDS: PERCOCET 5/325 PO PRN ×4 (05:55→22:48)
[2018-04-07] MEDS ORDERED: BOOSTRIX IM ONE (06:00)
--- NOTE | 2018-04-07 08:04 | Progress Note ---
Assessment and Plan A: POD#1 s/p primary section at term P: Routine postop care. Abdominal binder. Bowel regimen. Subjective - Subjective Date of service: 04/07/18 Principal diagnosis: s/p primary section at term Interval history: No overnight events. Patient reports: voiding normally, pain well controlled, flatus (minimal), ambulating normally (to bathroom), no bowel movement [place]: doing well Objective - Vital Signs Latest vital signs: Vital Signs Temp Pulse Resp BP Pulse Ox 04/07/18 06:55 18 04/07/18 06:54 18 04/07/18 05:55 18 04/07/18 05:54 18 04/07/18 04:44 98.3 F 84 12 112/76 97 04/07/18 01:06 98.0 F 92 H 20 122/74 96 04/07/18 00:32 18 04/07/18 00:31 18 04/06/18 23:32 18 04/06/18 23:31 18 04/06/18 21:35 98.4 F 89 16 108/58 96 04/06/18 12:59 98.5 F 98 H 18 125/78 100 04/06/18 08:38 99.2 F 91 H 18 107/60 98 Intake and Output 04/06/18 04/07/18 04/07/18 22:59 06:59 14:59 Intake Total 1067.083 240 Output Total 450 900 Balance 617.083 -660 Intake: IV 827.083 D5lr 1,000 ml @ 125 mls/ 827.083 hr IV DIRECT ANIKA Rx#: [id number] Intake, Free Water 240 240 Output: Urine 450 900 Void 450 900 Other: Total, Output Amount 450 400 - Exam Breasts: Present: deferred Cardiovascular: Present: Regular rate Lungs: Present: Clear to auscultation Abdomen: Present: soft, distention (mild ), abnormal bowel sounds (hypoactive ) Uterus: Present: fundal height below umbilicus Incision: Present: dressed - Labs Labs: Abnormal lab results 04/06/18 Range/Units 15:18 Hgb 9.2 L D (10.1-14.3) gm/dl Hct 27.4 L D (30.3-42.9) %
[2018-04-07] MEDS: MILK OF MAGNESIA PO SCH ×2 (14:29→20:56)
[2018-04-08] MEDS: IBUPROFEN PO PRN (06:33)
[2018-04-08] MEDS: PERCOCET 5/325 PO PRN ×2 (06:34→12:04)
[2018-04-08] MEDS: MILK OF MAGNESIA PO SCH ×2 (10:28→17:29)
--- NOTE | 2018-04-08 15:39 | Progress Note ---
Assessment and Plan POD 2 s/p primary for nrfht. Patient doing well. Plan for discharge on today. Subjective - Subjective Date of service: 04/08/18 Principal diagnosis: s/p primary section at term Patient reports: appetite normal, voiding normally, pain well controlled, ambulating normally [place]: doing well Objective - Vital Signs Latest vital signs: Vital Signs Temp Pulse Resp BP Pulse Ox 04/08/18 12:04 20 04/08/18 07:27 97.6 F 77 18 136/85 04/08/18 06:34 18 04/08/18 06:33 18 04/08/18 00:28 97.5 F L 96 H 18 119/76 04/07/18 22:52 18 04/07/18 22:48 18 04/07/18 16:15 98.2 F 91 H 18 118/86 04/07/18 15:43 96 H 98 Intake and Output 04/08/18 04/08/18 04/08/18 06:59 14:59 22:59 Intake Total 100 360 Balance 100 360 Intake: Oral 360 Intake, Free Water 100 Other: Total, Intake Amount 120 # Voids Void 1 # Bowel Movements 1 - Exam Breasts: Present: deferred Cardiovascular: Present: Regular rate, Normal S1, Normal S2 Lungs: Present: Clear to auscultation, Normal air movement Abdomen: Present: normal appearance, soft Uterus: Present: normal, firm Extremities: Present: normal Incision: Present: normal, dry, intact
--- NOTE | 2018-04-08 15:41 | Discharge Summary ---
Providers - Providers Date of Admission: 04/05/18 17:30 Date of discharge: 04/08/18 Attending physician: NGUYỄN AGUILAR Primary care physician: NGUYỄN AGUILAR Hospitalization Reason for admission: active labor Delivery: Procedure: primary low transverse Incision: normal, dry, intact Other procedures: none Discharge diagnosis: IUP at term delivered [place] baby: male Hospital course: unremarkable Condition at discharge: Good Disposition: DC-01 TO HOME OR SELFCARE Plan - Discharge Medications Prescriptions: Ibuprofen [Motrin] 800 mg PO Q8HR PRN #60 tablet PRN Reason: Pain, Mild (1-3) oxyCODONE /ACETAMINOPHEN [Percocet 5/325] 1 tab PO Q6HR PRN #30 tablet PRN Reason: Pain - Provider Discharge Summary Activity: routine, no sex for 6 weeks, no heavy lifting 4 weeks, no strenuous exercise Diet: routine Instructions: routine Additional instructions: [] Smoking cessation referral if applicable(refer to patient education folder for contact #) [] Refer to [facility] Booklet Call your doctor immediately for: * Fever > 100.5 * Heavy vaginal bleeding ( >1 pad per hour) * Severe persistent headache * Shortness of breath * Reddened, hot, painful area to leg or breast * Drainage or odor from incision. * Keep incision clean and dry at all times and follow doctor's instructions regarding bathing/showering - Follow up plan Follow up: NGUYỄN AGUILAR MD [Primary Care Provider] - 14 Days
[2018-04-08 15:57] VITALS: BP 127/56
== END 2018-04-08 17:40 | disposition home or self-care (01) | DRG 787 ==
LOC: TRG 14:30 → LD 17:30 → OB 04-06 05:40
PROVIDERS: ADMIT Obstetrics & Gynecology; ATTEND Obstetrics & Gynecology
PROC: 10D00Z1 Extraction of Products of Conception, Low, Open Approach (ICD-10-PCS; principal; 2018-04-06)
PROC: 10907ZC Drainage of Amniotic Fluid, Therapeutic from Products of Conception, Via Natural or Artificial Opening (ICD-10-PCS; 2018-04-06)
PROC: 3E0234Z Introduction of Serum, Toxoid and Vaccine into Muscle, Percutaneous Approach (ICD-10-PCS; 2018-04-07)
DX: O76 Abnormality in fetal heart rate and rhythm complicating labor and delivery (principal); R71.0 Precipitous drop in hematocrit; Z3A.38 38 weeks gestation of pregnancy; Z37.0 Single live birth; O99.02 Anemia complicating childbirth; D64.9 Anemia, unspecified; Z23 Encounter for immunization
CPT/HCPCS: 36415; 59025; 85014; 85018; 85027; 86592; 86850; 86900; 86901; 90471; 90715; 96360; G0378; J0690; J1200; J1885; J2270; J2274; J2405; J2590; J2765; J7030; J7120; J7121; Q0169